=== PATIENT | female | born 1990 | race American Indian/Alaskan Native ===

== ENCOUNTER 2016-08-17 07:41 | Emergency (ER) | payer SELFPAY ==
[2016-08-17 07:52] VITALS: BP 114/75
[2016-08-17 08:32] LABS: Basophils % (Auto) 0.2 % (0.0-1.8); Eosinophils % (Auto) 2.9 % (0.0-4.3); Hematocrit 39.7 % (30.3-42.9); Hemoglobin 13.3 gm/dl (10.1-14.3); Mean Corpuscular HGB Conc 34 % (30-34); Mean Corpuscular Hemoglobin 31 pg (28-32); Mean Corpuscular Volume 93 fl (79-97); Platelet Count 297 K/mm3 (140-440); Red Blood Count 4.26 M/mm3 (3.65-5.03); Red Cell Distribution Width 12.9 % (13.2-15.2); White Blood Count 4.8 K/mm3 (4.5-11.0)
[2016-08-17 08:42] LABS: Anion Gap 17 mmol/L; BUN/Creatinine Ratio 26.66; Blood Urea Nitrogen 16 mg/dL (7-17); Calcium 8.6 mg/dL (8.4-10.2); Carbon Dioxide 21 mmol/L (22-30); Chloride 100.2 mmol/L (98-107); Glucose 95 mg/dL (65-100); Lipase 29 units/L (13-60); Potassium 3.9 mmol/L (3.6-5.0); Sodium 134 mmol/L (137-145)
[2016-08-17 08:48] LABS: Bilirubin,Urine NEG (Negative); Blood,Urine NEG (Negative); Ketones,Urine TR mg/dL (Negative); Leukocyte Esterase,Urine NEG (Negative); Mucus,Urine 3+ /HPF; Nitrite,Urine NEG (Negative); Protein,Urine <15 mg/dL mg/dL (Negative)
--- NOTE | 2016-08-20 01:05 | ED Elopement Review ---
ED Pt Elopement review - Results review Lab results: Laboratory Tests 08/17/16 08/17/16 08/17/16 08:10 08:12 08:12 WBC 4.8 RBC 4.26 Hgb 13.3 Hct 39.7 MCV 93 MCH 31 MCHC 34 RDW 12.9 L Plt Count 297 Lymph % (Auto) 14.9 [place] % (Auto) 9.2 H Eos % (Auto) 2.9 Baso % (Auto) 0.2 Lymph # 0.7 L [place] # 0.4 Eos # 0.1 Baso # 0.0 Seg Neutrophils % 72.8 H Seg Neutrophils # 3.5 Sodium 134 L Potassium 3.9 Chloride 100.2 Carbon Dioxide 21 L Anion Gap 17 BUN 16 Creatinine 0.6 L Estimated GFR > 60 BUN/Creatinine Ratio 26.66 Glucose 95 Calcium 8.6 Troponin T < 0.010 Lipase 29 Urine Color Yellow Urine Turbidity Clear Urine pH 6.0 Ur Specific [place] 1.025 Urine Protein <15 mg/dl Urine Glucose (UA) Neg Urine Ketones Tr Urine Blood Neg Urine Nitrite Neg Urine Bilirubin Neg Urine Urobilinogen 2.0 Ur Leukocyte Esterase Neg Urine WBC (Auto) 1.0 Urine RBC (Auto) 2.0 U Epithel Cells (Auto) 13.0 Urine Mucus 3+ Urine HCG, Qual Negative 08/17/16 11:10 WBC RBC Hgb Hct MCV MCH MCHC RDW Plt Count Lymph % (Auto) [place] % (Auto) Eos % (Auto) Baso % (Auto) Lymph # [place] # Eos # Baso # Seg Neutrophils % Seg Neutrophils # Sodium Potassium Chloride Carbon Dioxide Anion Gap BUN Creatinine Estimated GFR BUN/Creatinine Ratio Glucose Calcium Troponin T < 0.010 Lipase Urine Color Urine Turbidity Urine pH Ur Specific [place] Urine Protein Urine Glucose (UA) Urine Ketones Urine Blood Urine Nitrite Urine Bilirubin Urine Urobilinogen Ur Leukocyte Esterase Urine WBC (Auto) Urine RBC (Auto) U Epithel Cells (Auto) Urine Mucus Urine HCG, Qual - Call Back decision Pt Call Back Decision: No action required
== END 2016-08-17 13:02 | disposition left against medical advice (07) ==
LOC: ED 07:41
DX: R10.30 Lower abdominal pain, unspecified (principal); R07.9 Chest pain, unspecified; Z53.21 Procedure and treatment not carried out due to patient leaving prior to being seen by health care provider
CPT/HCPCS: 36415; 80048; 81001; 81025; 83690; 84484; 85025; 93005; 93010

== ENCOUNTER 2019-05-30 12:28 | Emergency (ER) | payer SELFPAY ==
--- NOTE | 2019-05-30 12:44 | Event Note ---
ED Screening Note Date of service: 05/30/19 Time: 12:41 ED Screening Note: Pt complains of chest pain and tightness x 3 weeks states has been intermittent pain worsens with movement This initial assessment/diagnostic orders/clinical plan/treatment(s) is/are subject to change based on patients health status, clinical progression and re- assessment by fellow clinical providers in the ED. Further treatment and workup at subsequent clinical providers discretion. Patient/guardian urged not to elope from the ED as their condition may be serious if not clinically assessed and managed. Initial orders include: ekg labs CXR
--- NOTE | 2019-05-30 13:19 | XRay Report ---
CHEST 2 VIEWS INDICATION: left sided chest pain. COMPARISON: None. FINDINGS: Support devices: None. Heart: Within normal limits. Lungs/Pleura: No acute air space or interstitial disease. No significant pleural effusion. IMPRESSION: No acute findings. Signer Name: Daron Storm MD Signed: 05/30/2019 1:14 PM Workstation Name: [id number]
[2019-05-30 16:09] LABS: Basophils % (Auto) 0.9 % (0.0-1.8); Eosinophils # (Auto) 0.1 K/mm3 (0.0-0.4); Eosinophils % (Auto) 1.8 % (0.0-4.3); Hemoglobin 12.8 gm/dl (10.1-14.3); Lymphocytes # (Auto) 1.9 K/mm3 (1.2-5.4); Lymphocytes % (Auto) 36.4 % (13.4-35.0); Monocytes # (Auto) 0.4 K/mm3 (0.0-0.8); Monocytes % (Auto) 8.4 % (0.0-7.3)
[2019-05-30 16:22] LABS: Mean Corpuscular HGB Conc 33 % (30-34); Mean Corpuscular Volume 93 fl (79-97); Platelet Count 395 K/mm3 (140-440); Red Blood Count 4.08 M/mm3 (3.65-5.03); Red Cell Distribution Width 13.4 % (13.2-15.2)
[2019-05-30 16:25] LABS: Alanine Aminotransferase 14 units/L (7-56); Albumin 4.7 g/dL (3.9-5); BUN/Creatinine Ratio 22; Blood Urea Nitrogen 13 mg/dL (7-17); Calcium 9.5 mg/dL (8.4-10.2); Hemolysis Index 6
--- NOTE | 2019-05-30 17:50 | Emergency Department Report ---
ED Chest Pain HPI - General Chief Complaint: Chest Pain Stated Complaint: CHEST TIGHTNESS Time Seen by Provider: 05/30/19 12:41 Source: patient Mode of arrival: Ambulatory Limitations: No Limitations - History of Present Illness Initial Comments: Patient is a 29-year-old female presents emergency room with complaints of left- sided chest pain that began 3 weeks ago. She states the pain is worse with movement. She states it feels like a squeezing sensation. States that she went to another ER on 05/20/19 and was diagnosed with a pulled muscle. She states she was given a prescription for Tylenol but she still has had some discomfort. She denies any nausea, vomiting, shortness of breath, leg swelling, pleuritic chest pain, recent travel, recent surgery, hormone use. She denies any past medical history. She states she has an allergy to codeine and Lortab. She states her last menstrual cycle was 05/09/2019. She states that her dad has a history of CHF but no history of AL. She denies any family history of DVT or PE. - Related Data Previous Rx's Medication Instructions Recorded Last Taken Type Cyclobenzaprine [Flexeril] 10 mg PO QHS PRN #10 tablet 05/30/19 Unknown Rx Naproxen [EC-Naprosyn] 375 mg PO BID PRN #14 tablet. 05/30/19 Unknown Rx Allergies Allergy/AdvReac Type Severity Reaction Status Date / Time No Known Allergies Allergy Unverified 08/17/16 07:46 Heart Score - HEART Score History: Slightly suspicious EKG: Normal Age: < 45 Risk factors: No known risk factors Troponin: < normal limit HEART Score: 0 ED Review of Systems ROS: Stated complaint: CHEST TIGHTNESS Other details as noted in HPI Comment: All other systems reviewed and negative ED Past Medical Hx - Past Medical History Previous Medical History?: No - Surgical History Past Surgical History?: No - Social History Smoking Status: Current Every Day Smoker Substance Use Type: Alcohol - Medications Home Medications: Home Medications Medication Instructions Recorded Confirmed Last Taken Type Cyclobenzaprine [Flexeril] 10 mg PO QHS PRN #10 tablet 05/30/19 Unknown Rx Naproxen [EC-Naprosyn] 375 mg PO BID PRN #14 tablet. 05/30/19 Unknown Rx ED Physical Exam - General Limitations: No Limitations General appearance: alert, in no apparent distress - Head Head exam: Present: atraumatic, normocephalic - Eye Eye exam: Present: normal appearance - ENT ENT exam: Present: mucous membranes moist - Respiratory Respiratory exam: Present: normal lung sounds bilaterally, chest wall tenderness (reproducible left anterior chest wall TTP, no ecchymosis, no crepitus, no deformity). Absent: respiratory distress, wheezes, rales, rhonchi, stridor, accessory muscle use, decreased breath sounds, prolonged expiratory - Cardiovascular Cardiovascular Exam: Present: regular rate, normal rhythm, normal heart sounds. Absent: systolic murmur, diastolic murmur, rubs, gallop - Extremities Exam Extremities exam: Absent: pedal edema - Neurological Exam Neurological exam: Present: alert, oriented X3 - Psychiatric Psychiatric exam: Present: normal affect, normal mood - Skin Skin exam: Present: warm, dry, intact ED Course Vital Signs 05/30/19 05/30/19 05/30/19 12:33 18:09 18:33 Temperature 98.1 F Pulse Rate 85 68 Respiratory 20 12 12 Rate Blood Pressure 133/84 Blood Pressure 127/80 [Left] O2 Sat by Pulse 100 98 Oximetry SUKHDEV score - Sukhdev Score Age > 65: (0) No Aspirin use within the Past 7 Days: (0) No 3 or more CAD Risk Factors: (0) No 2 or more Angina events in past 24 hrs: (0) No Known CAD with more than 50% Stenosis: (0) No Elevated Cardiac Markers: (0) No ST Deviation Greater than 0.5mm: (0) No SUKHDEV Score: 0 ED Medical Decision Making - Lab Data Result diagrams: 05/30/19 15:47 05/30/19 15:47 Lab Results 05/30/19 05/30/19 Range/Units 15:47 15:47 WBC 5.1 (4.5-11.0) K/mm3 RBC 4.08 (3.65-5.03) M/mm3 Hgb 12.8 (10.1-14.3) gm/dl Hct 38.0 (30.3-42.9) % MCV 93 (79-97) fl MCH 31 (28-32) pg MCHC 33 (30-34) % RDW 13.4 (13.2-15.2) % Plt Count 395 (140-440) K/mm3 Lymph % (Auto) 36.4 H (13.4-35.0) % [place] % (Auto) 8.4 H (0.0-7.3) % Eos % (Auto) 1.8 (0.0-4.3) % Baso % (Auto) 0.9 (0.0-1.8) % Lymph # 1.9 (1.2-5.4) K/mm3 [place] # 0.4 (0.0-0.8) K/mm3 Eos # 0.1 (0.0-0.4) K/mm3 Baso # 0.0 (0.0-0.1) K/mm3 Seg Neutrophils % 52.5 (40.0-70.0) % Seg Neutrophils # 2.7 (1.8-7.7) K/mm3 Sodium 138 (137-145) mmol/L Potassium 4.5 (3.6-5.0) mmol/L Chloride 102.4 (98-107) mmol/L Carbon Dioxide 24 (22-30) mmol/L Anion Gap 16 mmol/L BUN 13 (7-17) mg/dL Creatinine 0.6 L (0.7-1.2) mg/dL Estimated GFR > 60 ml/min BUN/Creatinine Ratio 22 % Glucose 96 (65-100) mg/dL Calcium 9.5 (8.4-10.2) mg/dL Total Bilirubin < 0.20 (0.1-1.2) mg/dL AST 21 (5-40) units/L ALT 14 (7-56) units/L Alkaline Phosphatase 38 (35-129) units/L Troponin T < 0.010 (0.00-0.029) ng/mL Total Protein 8.0 (6.3-8.2) g/dL Albumin 4.7 (3.9-5) g/dL Albumin/Globulin Ratio 1.4 % - EKG Data EKG shows normal: sinus rhythm, axis, intervals, QRS complexes, ST-T waves Rate: normal - Radiology Data Radiology results: report reviewed CXR no acute findings - Medical Decision Making Patient is a 29-year-old female presents emergency room with complaints of left- sided chest pain that began 3 weeks ago. She states the pain is worse with movement. She states it feels like a squeezing sensation. States that she went to another ER on 12/26/19 and was diagnosed with a pulled muscle. She states she was given a prescription for Tylenol but she still has had some discomfort. She denies any nausea, vomiting, shortness of breath, leg swelling, pleuritic chest pain, recent travel, recent surgery, hormone use. She denies any past medical history. She states she has an allergy to codeine and Lortab. She states her last menstrual cycle was 05/09/2019. She states that her dad has a history of CHF but no history of AL. She denies any family history of DVT or PE. VSS. on exam: reproducible left anterior chest wall TTP, no ecchymosis, no crepitus, no deformity. labs are normal, troponin is negative, EKG WNL, CXR with no acute process. PERC criteria negative for PE. Heart score and SUKHDEV score are 0, very low risk for cardiac event. pt given prescription for narpoxen and flexeril. advised pt please take medication as prescribed as needed. Do not drive or operate heavy machinery while taking muscle laxer. May use ice pack, heating pad, rest, epsom salt bath. Follow-up with a primary care doctor in the next 2-3 days for reevaluation. Return to the emergency room for any new or worsening symptoms. - Differential Diagnosis costochondritis, pericarditis, PTX, ACS, PE, GERD Critical care attestation.: If time is entered above; I have spent that time in minutes in the direct care of this critically ill patient, excluding procedure time. ED Disposition Clinical Impression: Atypical chest pain Disposition: DC-01 TO HOME OR SELFCARE Is pt being admited?: No Does the pt Need Aspirin: No Condition: Stable Instructions: Chest Pain (ED), Costochondritis (ED) Additional Instructions: please take medication as prescribed as needed. Do not drive or operate heavy machinery while taking muscle laxer. May use ice pack, heating pad, rest, epsom salt bath. Follow-up with a primary care doctor in the next 2-3 days for reevaluation. Return to the emergency room for any new or worsening symptoms. Prescriptions: Cyclobenzaprine [Flexeril] 10 mg PO QHS PRN #10 tablet PRN Reason: Muscle Spasm Naproxen [EC-Naprosyn] 375 mg PO BID PRN #14 tablet.dr ABEBE Reason: pain Referrals: STEVEN LANG MD [Staff Physician] - 2-3 Days [facility] [Outside] - 2-3 Days [facility] [Outside] - 2-3 Days Time of Disposition: 18:09 Print Language: TURKISH
[2019-05-30 18:34] VITALS: BP 127/80
== END 2019-05-30 18:52 | disposition home or self-care (01) ==
LOC: ED 12:28
DX: R07.89 Other chest pain (principal); F17.200 Nicotine dependence, unspecified, uncomplicated
CPT/HCPCS: 36415; 71046; 80053; 84484; 85025; 93005; 93010